=== PATIENT | female | born 1955 | race Caucasian/White ===

== ENCOUNTER → 2017-11-03 | Outpatient (CLI) | payer OTHER ==
--- NOTE | 2017-11-03 15:56 | CTL ---
EXAMINATION TYPE: CT Low Dose Lung DATE OF EXAM ORDERED: 11/03/2017 HISTORY: Initial. Lung cancer screening CT DLP: [address] CTDI: 3.64 mGy Automated exposure control for dose reduction was used. SCREENING VISIT: Initial COMPARISON: Chest x-ray 10/19/2017 TECHNIQUE: Low dose computed tomography scan was performed through the chest at 1 mm thick sections a nd reconstructed images in the coronal plane at [address] DIAGNOSTIC QUALITY: Limited, but interpretable FINDINGS: LUNG NODULES: None. LUNGS: COPD: Severity: None Fibrosis: Severity: None Lymph nodes: No enlarged lymph nodes Other findings: None RIGHT PLEURAL SPACE: Effusion: None Calcification: None Thickening: None Pneumothorax: None LEFT PLEURAL SPACE: Effusion: None Calcification: None Thickening: None Pneumothorax: None HEART: Heart Size: Normal Coronary calcification: Mild Pericardial effusion: None OTHER FINDINGS: Upper abdomen: Normal Bony thorax: Unremarkable Supraclavicular region: Normal Other: Ascending thoracic aorta at the level of the main pulmonary artery is 3.6 cm. The main pulmona ry artery at the bifurcation is 2.3 cm. IMPRESSION: 1. No suspicious changes FOLLOW UP CT CHEST RECOMMENDATION: Screening per protocol CT LUNG RAD: Lung-Rad 1 Negative
== END | disposition home or self-care (01) ==
LOC: RADCTMAIN 07:05
PROVIDERS: ATTEND Internal Medicine
DX: Z12.2 Encounter for screening for malignant neoplasm of respiratory organs (principal); Z87.891 Personal history of nicotine dependence

== ENCOUNTER 2017-12-04 11:47 | Emergency (ER) | payer OTHER ==
[2017-12-04 12:02] VITALS: PULSE 89
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
[2017-12-04 13:28] VITALS: BP 137/64; RESP 18; TEMP 98.2
== END 2017-12-04 13:27 | disposition home or self-care (01) ==
LOC: EC 11:47
DX: S09.90XD Unspecified injury of head, subsequent encounter (principal); M54.2 Cervicalgia; I10 Essential (primary) hypertension; Z87.891 Personal history of nicotine dependence; Z79.82 Long term (current) use of aspirin; Z79.899 Other long term (current) drug therapy; V43.52XD Car driver injured in collision with other type car in traffic accident, subsequent encounter; Y92.410 Unspecified street and highway as the place of occurrence of the external cause
CPT/HCPCS: 70450; 72125; 99283